=== PATIENT | female | born 1975 | race Hispanic/Latino ===

== ENCOUNTER 2017-08-17 18:14 | Inpatient (IN) | payer MEDICAID ==
[2017-08-17 18:26] VITALS: BMI 32.9
--- NOTE | 2017-08-17 19:35 | C.PDOC ---
History Of Present Illness Patient presents to the ER as a prescreen for detox from xanax. Patient reports she took 12 pills today, she usually takes 14-16 a day normally. Denies physical complaints at this time. Time Seen by Provider: 08/17/17 19:31 Chief Complaint (Nursing): Substance Abuse History Per: Patient History/Exam Limitations: no limitations Onset/Duration Of Symptoms: Days Current Symptoms Are (Timing): Still Present Suicide/Self Injury Attempted (Context): None Modifying Factor(s): Other (Xanax) Severity: None Pain Scale Rating Of: 0 Associated Symptoms: denies: Depression, Suicidal Thoughts, Suicidal Plan Involuntary Hold By: None Recent travel outside of the [place]: No Past Medical History Reviewed: Historical Data, Nursing Documentation, Vital Signs Vital Signs: Last Vital Signs Temp 98.4 F 08/17/17 18:30 Pulse 93 H 08/17/17 18:30 Resp 16 08/17/17 18:30 BP 124/89 08/17/17 18:30 Pulse Ox 97 08/17/17 19:56 - Medical History PMH: Anxiety Family History: States: No Known Family Hx - Social History Hx Alcohol Use: No Hx Substance Use: Yes - Immunization History Hx Tetanus Toxoid Vaccination: No Hx Influenza Vaccination: No Hx Pneumococcal Vaccination: No Review Of Systems Constitutional: Negative for: Fever, Chills Gastrointestinal: Negative for: Nausea, Vomiting, Diarrhea Physical Exam - Physical Exam Appears: Non-toxic Skin: Warm, Dry Head: Normacephalic Oral Mucosa: Moist Chest: Symmetrical, No Tenderness Cardiovascular: Rhythm Regular Respiratory: No Rales, No Rhonchi, No Wheezing Gastrointestinal/Abdominal: Soft, No Tenderness Neurological/Psych: Oriented x3 ED Course And Treatment - Laboratory Results Result Diagrams: 08/17/17 19:44 08/17/17 19:44 O2 Sat by Pulse Oximetry: 97 (Room air) Pulse Ox Interpretation: Normal Progress Note: Blood work and urinalysis ordered. Crisis notified. Disposition Discussed With : Isabel Montejo Comment: accepted the pt on his service and took over the care at 9:10 PM Doctor Will See Patient In The: Hospital Counseled Patient/Family Regarding: Studies Performed, Diagnosis - Disposition Disposition: HOSPITALIZED Disposition Time: 19:35 Condition: FAIR Forms: [facility] (Hungarian) - Clinical Impression Clinical Impression: Benzodiazepine dependence, continuous - Scribe Statement The provider has reviewed the documentation as recorded by the Scribe Cristóbal Mora All medical record entries made by the Scribe were at my direction and personally dictated by me. I have reviewed the chart and agree that the record accurately reflects my personal performance of the history, physical exam, medical decision making, and the department course for this patient. I have also personally directed, reviewed, and agree with the discharge instructions and disposition. Decision To Admit - Pt Status Changed To: Hospital Disposition Of: Inpatient - Admit Certification Admit to Inpatient:: After my assessment, the patient will require hospitalization for at least two midnights. This is because of the severity of symptoms shown, intensity of services needed, and/or the medical risk in this patient being treated as an outpatient. - InPatient: Physician Admission Certification: I certify that this patient requires 2 or more midnights of care for the following reason:: After my assessment, the patient will require hospitalization for at least two midnights. This is because of the severity of symptoms shown, intensity of services needed, and/or the medical risk in this patient being treated as an outpatient. - . Bed Request Type: Detox Admitting Physician: Isabel Montejo Patient Diagnosis: Benzodiazepine dependence, continuous
[2017-08-17 19:48] LABS: BASO # 0.1 K/uL (0.0-0.2); BASO % 0.7 % (0.0-2.0); EOS # 0.3 K/uL (0.0-0.7); EOS % 3.3 % (0.0-4.0); HEMOGLOBIN 12.9 g/dL (11.0-16.0); LYMPH # 3.4 K/uL (1.0-4.3); MEAN CELL VOLUME 97.1 fL (81.0-99.0); MEAN CORPUSCULAR HEMOGLOBIN 33.7 pg (27.0-31.0); MEAN CORPUSCULAR HGB CONC 34.7 g/dL (33.0-37.0); MONO # 0.5 K/uL (0.0-0.8); MONO % 5.2 % (0.0-10.0); NEUT # 5.5 K/uL (1.8-7.0); NEUT % 55.8 % (50.0-75.0); RBC 3.83 Mil/uL (3.80-5.20); RED CELL DISTRIBUTION WIDTH 15.2 % (11.5-14.5); WHITE BLOOD COUNT 9.8 K/uL (4.8-10.8)
[2017-08-17 20:00] LABS: ALB/GLOB RATIO 1.3 (1.0-2.1); ALBUMIN 4.6 g/dL (3.5-5.0); ALT/SGPT 36 U/L (9-52); AST/SGOT 33 U/L (14-36); BLOOD UREA NITROGEN 17 mg/dL (7-17); CALCIUM 9.6 mg/dl (8.6-10.4); GFR AFRICAN-AMERICAN > 60; GFR NON-AFRICAN AMERICAN 54
[2017-08-17 20:25] LABS: HCG,QUALITATIVE URINE NEGATIVE (NEGATIVE)
[2017-08-17 20:34] LABS: SQUAMOUS EPITHIAL 3 /hpf (0-5); URINE BACTERIA RARE (<OCC); URINE BILIRUBIN NEGATIVE (NEGATIVE); URINE BLOOD NEGATIVE (NEGATIVE); URINE CLARITY Clear (Clear); URINE COLOR Yellow (YELLOW); URINE GLUCOSE (UA) NORMAL (Normal); URINE LEUKOCYTE ESTERASE NEG Leu/uL (Negative); URINE NITRATE NEGATIVE (NEGATIVE); URINE PROTEIN NEGATIVE (NEGATIVE); URINE UROBILINOGEN NORMAL mg/dL (0.2-1.0)
[2017-08-17 20:49] LABS: BARBITURATES, UR NEGATIVE (NEGATIVE); OPIATES, UR NEGATIVE (NEGATIVE); PHENCYCLIDINE, UR NEGATIVE (NEGATIVE)
[2017-08-17 20:50] LABS: BENZODIAZEPINES, UR POSITIVE (NEGATIVE)
[2017-08-18] MEDS: Levothyroxine 100 MCG TAB PO SCH (07:52)
--- NOTE | 2017-08-18 08:08 | PCM.BM ---
<Anniak Forte - Last Filed: 08/18/17 08:05> Treatment Plan Problems - Problems identified on initial assessmt Potential for benzo withdrawal Date Initiated: 08/18/17 Assessment reference: NA Status: Active Treatment assets and liabiliti Patient Assests: adapts well, cooperative, ADL independent, negotiates basic needs Patient Liabilities: substance abuse - Milieu Protocol Maintain good personal hygiene: daily Encourage regular showers, daily Remind patient to perform daily oral care, daily Assist patient to perform ADL's Conduct patient checks and document Observation sheet: Q15 minutes Maintain personal safety: every shift Educate patient to report safety concerns to staff, every shift Monitor environment for contraband/sharps Medication safety: Monitor for expected outcome, potential side effects: every shift, Assess barriers to learning: every shift, Assess readiness for medication education: every shift <Isabel Montejo - Last Filed: 08/19/17 11:42> - Diagnosis (1) Benzodiazepine dependence, continuous Status: Acute Interventions: 08/19/17 11:42 * Assess 7x/week regarding severity of withdrawal * Educate regarding risks, benefits, side effects and alternatives of medications * Use Motivational Interviewing for abstinence * Use CBT for relapse prevention * Medication management for withdrawal symptoms * Encourage medication assisted treatment *
--- NOTE | 2017-08-18 14:03 | PCM.PSYCH ---
Initial Psychiatric Evaluation - Initial Psychiatric Evaluation Type of Admission: Voluntary Legal Status: Capacity Chief Complaint (in patient's own words): "I am here, I want to stop this" History of Present Illness and Precipitating Events: The pt is seen, chart reviewed and case discussed. She is a 40 yo WF, with 4 children, all young adults, lives with , son, daughter and daughter's son. No job. She is from [place] but currently stays in [place] with a relative. She later admitted that she is here b/c of "other people" meaning her boyfriend and family. However, then she also reports motivation to change" "this is killing me" She is using "at least 12 mg" of xanax increasingly close to 15 years. Never had seizures; "I didn't allow" she says, but had wdw sxs. This is her first detox, she tried as an outpatient but stopped bc she lost her insurance. Denies other drugs or alcohol. No rehab, no AA. Past psych hx: She claims she started with panic d/o to use xanax. No admissions and no suicides. Medical hx: Hypothyroidism. Uses synthroid on and off Family psych hx is unknown. Current Medications: Active Medications Generic Name Dose Route Start Last Admin Trade Name Freq PRN Reason Stop Dose Admin Chlordiazepoxide 25 mg 08/17/17 21:45 Librium PO Q4H PRN Alcohol Withdrawal Gabapentin 300 mg 08/18/17 10:00 08/18/17 13:55 Neurontin PO Not Given TID AFSHAN Hydroxyzine HCl 50 mg 08/17/17 21:49 08/18/17 06:43 Atarax PO 50 mg Q6H PRN Administration Anxiety Ibuprofen 600 mg 08/17/17 21:49 Motrin Tab PO Q6H PRN Pain, moderate (4-7) Levetiracetam 250 mg 08/18/17 10:30 08/18/17 11:01 Keppra PO 250 mg BID AFSHAN Administration Levothyroxine Sodium 100 mcg 08/18/17 06:30 08/18/17 07:52 Synthroid PO Not Given DAILY@0630 AFSHAN Trazodone HCl 50 mg 08/17/17 21:45 Desyrel PO HS PRN Insomnia Past Psychiatric History - Past Psychiatric History Previous Treatment History: None Pertinent Medical Hx (Current Medical&Sleep Prob, Allergies): Allergies Allergy/AdvReac Type Severity Reaction Status Date / Time No Known Allergies Allergy Verified 08/17/17 18:25 Alprazolam [Xanax] 2 mg PO DAILY 08/17/17 Levothyroxine [Synthroid] 0.1 mg PO DAILY 08/17/17 Review of Systems - Neurological Neurological: UNREMARKABLE - Psychiatric Psychiatric: Abnormal Sleep Pattern, Anhedonia, Anxiety, Change in Appetite, Confusion (mild), Difficulty Concentrating, Irritability. absent: Hallucinations, Homicidal Ideation, Suicidal Ideation Mental Status Examination - Personal Presentation Personal Presentation: Looks older than stated age - Affect Affect: Constricted - Motor Activity Motor Activity: Calm - Reliability in Providing Information Reliability in Providing Information: Fair - Speech Speech: Other (rambling and loud at times) - Mood Mood: Depressed, Anxious, Other (irate) - Formal Thought Process Formal Thought Process: No Impairment - Cognitive Functions Orientation: Person, Place, Situation, Time Sensorium: Drowsy Attention/Concentration: Easily distracted Abstract Thinking: [place] Estimate of Intelligence: Below average (borderline vs. 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 Attend groups and activities Supportive therapy and psychoeducation [place] for abstinence CBT for relapse prevention Encourage MAT Refer to rehab or IOP Attend self-help groups as well 34 min Projected ELOS: 6 days Prognosis: good with treatment Discharge Plan and Discharge Criteria: Rehab
[2017-08-19] MEDS: Levothyroxine 100 MCG TAB PO SCH (05:30)
[2017-08-19 17:11] VITALS: RESP 18
--- NOTE | 2017-08-19 20:17 | PCM.PYCHPN ---
Psychiatric Progress Note - Psychiatric Progress Note Patient seen today, length of contact: 15 minutes Patient Chief Complaint: I'm not feeling good because of headache. Problems Identified/Issues Discussed: patient seen, chart reviewed, case discussed with the staff. Issues related to illness and treatment were discussed with the patient and staff. Reported compliant with treatment with No adverse affects. Patient reported not feeling better because of headache. Aftercare discussed with the patient. At the time of evaluation, patient was awake alert and oriented 3, no delusions , no auditory or visual hallucinations, no suicidal ideations or homicidal ideations. Medical Problems: None reported Diagnostic Results: Reviewed DSM 5 Symptoms Update: Improving with treatment Medication Change: No Medical Record Reviewed: Yes Mental Status Examination - Cognitive Function Orientation: Person, Place, Situation, Time Memory: Intact Attention: WNL Concentration: WNL Association: WN Fund of Knowledge: [facility] Decription of patient's judgement and insights: Fair - Mood Mood: Depressed, Other (irate) - Affect Affect: Depressed - Speech Speech: Appropriate - Formal Thought Process Formal Thought Process: No Impairment Psychotic Thoughts and Behaviors: None - Suicidal Ideation Suicidal Ideation: No - Homicidal Ideation Homicidal Ideation: No Goal/Treatment Plan - Goal/Treatment Plan Need for Continued Stay: Remain at risks for inpatient hospitalization, Discharge may exacerbated symptoms, Severe functional impairment Progress Toward Problem(s) and Goals/Treatment Plan: Patient education. Supportive therapy. Motivational interview for abstinence. CPT for relapse prevention. Continue rest of the treatment as before. Estimated Date of D/C: 08/22/17 - Smoking Cessation Smoking Cessation Initiated: No
[2017-08-20] MEDS: Levothyroxine 100 MCG TAB PO SCH (05:54)
[2017-08-20] MEDS ORDERED: Magnesium Citrate Oral SOL (300 ml) PO ONE (15:19)
--- NOTE | 2017-08-20 16:43 | PCM.PYCHPN ---
Psychiatric Progress Note - Psychiatric Progress Note Patient seen today, length of contact: 15 minutes Patient Chief Complaint: I still have headache. Can I get Tylenol. Problems Identified/Issues Discussed: patient seen, chart reviewed, case discussed with the staff. Issues related to illness and treatment were discussed with the patient and staff. Reported compliant with treatment with No adverse affects. Patient reported not feeling better because of headache. Requesting for Tylenol. After evaluation patient became calm and more relaxed. Aftercare discussed with the patient. At the time of evaluation, patient was awake alert and oriented 3, no delusions , no auditory or visual hallucinations, no suicidal ideations or homicidal ideations. Medical Problems: None reported Diagnostic Results: Reviewed DSM 5 Symptoms Update: Improving with treatment Medication Change: No Medical Record Reviewed: Yes Mental Status Examination - Cognitive Function Orientation: Person, Place, Situation, Time Memory: Intact Attention: WNL Concentration: WNL Association: WN Fund of Knowledge: [facility] Decription of patient's judgement and insights: Fair - Mood Mood: Anxious - Affect Affect: Other (Appropriate) - Speech Speech: Appropriate - Formal Thought Process Formal Thought Process: No Impairment Psychotic Thoughts and Behaviors: None - Suicidal Ideation Suicidal Ideation: No - Homicidal Ideation Homicidal Ideation: No Goal/Treatment Plan - Goal/Treatment Plan Need for Continued Stay: Remain at risks for inpatient hospitalization, Discharge may exacerbated symptoms, Severe functional impairment Progress Toward Problem(s) and Goals/Treatment Plan: Patient education. Supportive therapy. Motivational interview for abstinence. CBT for relapse prevention. Continue treatment as before. Estimated Date of D/C: 08/22/17 - Smoking Cessation Smoking Cessation Initiated: No
[2017-08-21] MEDS: Levothyroxine 100 MCG TAB PO SCH (05:33)
[2017-08-22] MEDS: Levothyroxine 100 MCG TAB PO SCH (06:14)
[2017-08-22 06:31] VITALS: BP 111/79; PULSE 65; TEMP 98.1; O2SAT 97
--- NOTE | 2017-08-22 10:09 | PCM.PYCHDC ---
Mental Status Examination - Mental Status Examination Orientation: Person Discharge Summary - Discharge Note Consultations:: List each consultation separately and include: 1. Reason for request. 2. Findings. 3. Follow-up Summary of Hospital Course include:: 1. Description of specific treatment plan utilized for patients during their course of treatmen. 2. Summarize the time- course for resolution of acute symptoms and/or regressed behaviors. 3. Describe issues identified and worked on during hospitalization. 4. Describe medication utilized. 5. Describe medical problems identified and treated. 6. Reassessment of suicide risk Summary of Hospital Course: The pt is seen, chart reviewed and case discussed. She is a 40 yo WF, with 4 children, all young adults, lives with , son, daughter and daughter's son. No job. She is from [place] but currently stays in [place] with a relative. She later admitted that she is here b/c of "other people" meaning her boyfriend and family. However, then she also reports motivation to change" "this is killing me" She is using "at least 12 mg" of xanax increasingly close to 15 years. Never had seizures; "I didn't allow" she says, but had wdw sxs. This is her first detox, she tried as an outpatient but stopped bc she lost her insurance. Denies other drugs or alcohol. No rehab, no AA. Past psych hx: She claims she started with panic d/o to use xanax. No admissions and no suicides. Medical hx: Hypothyroidism. Uses synthroid on and off Family psych hx is unknown. - Diagnosis (1) Benzodiazepine dependence, continuous Current Visit: Yes Status: Acute - Final Diagnosis (DSM 5) Condition upon Discharge: FAIR Disposition: HOME/ ROUTINE Follow-up Treatment Plan: Librium detox + prn Librium As needed medications Gabapentin for augmentation Keppra to prevent seizures x30 days All risks, benefits and alternatives of medications, including no medications, discussed and the patient understood and agreed. Attend groups and activities Supportive therapy and psychoeducation [place] for abstinence CBT for relapse prevention Encourage MAT Refer to rehab or IOP Attend self-help groups as well 34 min Prescriptions/Medication Reconciliation: Gabapentin [Neurontin] 300 mg PO TID #90 cap levETIRAcetam [Keppra] 500 mg PO BID #60 tab Levothyroxine [Synthroid] 100 mcg PO DAILY@0630 #30 tab traZODone [Desyrel] 50 mg PO HS PRN #30 tab PRN Reason: Insomnia
--- NOTE | 2017-08-22 10:09 | PCM.PYCHPN ---
Psychiatric Progress Note - Psychiatric Progress Note Patient seen today, length of contact: 15 minutes Patient Chief Complaint: "I am here, I want to stop this" Medication Change: No Medical Record Reviewed: Yes Mental Status Examination - Cognitive Function Orientation: Person - Mood Mood: Anxious - Affect Affect: Other (Appropriate) - Speech Speech: Appropriate - Formal Thought Process Formal Thought Process: No Impairment - Suicidal Ideation Suicidal Ideation: No - Homicidal Ideation Homicidal Ideation: No Goal/Treatment Plan - Goal/Treatment Plan Need for Continued Stay: Remain at risks for inpatient hospitalization, Discharge may exacerbated symptoms, Severe functional impairment Progress Toward Problem(s) and Goals/Treatment Plan: Librium detox + prn Librium As needed medications Gabapentin for augmentation Keppra to prevent seizures x30 days All risks, benefits and alternatives of medications, including no medications, discussed and the patient understood and agreed. Attend groups and activities Supportive therapy and psychoeducation [place] for abstinence CBT for relapse prevention Encourage MAT Refer to rehab or IOP Attend self-help groups as well 34 min Estimated Date of D/C: 08/22/17
== END 2017-08-22 10:30 | disposition home or self-care (01) | DRG 895 ==
LOC: C.ER 18:14 → C.7D 21:15
PROVIDERS: ADMIT Psychiatry & Neurology Psychiatry; ATTEND Psychiatry & Neurology Psychiatry
PROC: HZ2ZZZZ Detoxification Services for Substance Abuse Treatment (ICD-10-PCS; principal; 2017-08-17)
PROC: HZ59ZZZ Individual Psychotherapy for Substance Abuse Treatment, Supportive (ICD-10-PCS; 2017-08-17)
PROC: HZ46ZZZ Group Counseling for Substance Abuse Treatment, Psychoeducation (ICD-10-PCS; 2017-08-17)
DX: F13.230 Sedative, hypnotic or anxiolytic dependence with withdrawal, uncomplicated (principal); E03.9 Hypothyroidism, unspecified; F60.9 Personality disorder, unspecified; F17.210 Nicotine dependence, cigarettes, uncomplicated

== ENCOUNTER 2018-03-27 20:05 | Inpatient (IN) | payer MEDICAID, OTHER ==
[2018-03-27 20:05] VITALS: BMI 32.9
[2018-03-27 20:58] VITALS: RESP 18; O2SAT 99
[2018-03-27 21:31] LABS: BASO # 0.1 K/uL (0.0-0.2); BASO % 0.5 % (0.0-2.0); EOS # 0.2 K/uL (0.0-0.7); EOS % 1.6 % (0.0-4.0); HEMOGLOBIN 12.2 g/dL (11.0-16.0); LYMPH # 2.5 K/uL (1.0-4.3); LYMPH % 24.5 % (20.0-40.0); MEAN CORPUSCULAR HEMOGLOBIN 32.5 pg (27.0-31.0); MEAN CORPUSCULAR HGB CONC 34.3 g/dL (33.0-37.0); MEAN PLATELET VOLUME 9.1 fL (7.2-11.7); MONO # 0.7 K/uL (0.0-0.8); MONO % 6.9 % (0.0-10.0); NEUT # 6.7 K/uL (1.8-7.0); NEUT % 66.5 % (50.0-75.0); RBC 3.76 Mil/uL (3.80-5.20); RED CELL DISTRIBUTION WIDTH 16.2 % (11.5-14.5)
[2018-03-27 21:33] LABS: MEAN CELL VOLUME 94.7 fL (81.0-99.0); SQUAMOUS EPITHIAL 3 /hpf (0-5); URINE BACTERIA MANY (<OCC); URINE BILIRUBIN NEGATIVE (NEGATIVE); URINE BLOOD 1+ (NEGATIVE); URINE CLARITY Clear (Clear); URINE COLOR Straw (YELLOW); URINE GLUCOSE (UA) NORMAL (Normal); URINE LEUKOCYTE ESTERASE NEG Leu/uL (Negative); URINE PROTEIN NEGATIVE (NEGATIVE); URINE UROBILINOGEN NORMAL mg/dL (0.2-1.0)
[2018-03-27 21:43] LABS: ALB/GLOB RATIO 1.5 (1.0-2.1); ALBUMIN 4.7 g/dL (3.5-5.0); ALT/SGPT 24 U/L (9-52); AST/SGOT 17 U/L (14-36); BLOOD UREA NITROGEN 10 mg/dL (7-17); CALCIUM 9.5 mg/dl (8.6-10.4); GFR NON-AFRICAN AMERICAN > 60
[2018-03-27 21:51] LABS: HCG,QUALITATIVE URINE NEGATIVE (NEGATIVE)
[2018-03-27 21:53] LABS: BARBITURATES, UR NEGATIVE (NEGATIVE); OPIATES, UR NEGATIVE (NEGATIVE); PHENCYCLIDINE, UR NEGATIVE (NEGATIVE)
[2018-03-27 21:54] LABS: BENZODIAZEPINES, UR POSITIVE (NEGATIVE)
--- NOTE | 2018-03-27 23:00 | PCM.BM ---
Treatment Plan Problems - Problems identified on initial assessmt potential for benzo withdrawal Date Initiated: 03/27/18 Time Initiated: 23:00 Status: Active Treatment assets and liabiliti Patient Assests: adapts well, cooperative, ADL independent, negotiates basic needs Patient Liabilities: substance abuse, medical problems - Milieu Protocol Maintain good personal hygiene: daily Encourage regular showers, daily Remind patient to perform daily oral care, daily Assist patient to perform ADL's Conduct patient checks and document Observation sheet: Q15 minutes Maintain personal safety: every shift Educate patient to report safety concerns to staff, every shift Monitor environment for contraband/sharps Medication safety: Monitor for expected outcome, potential side effects: every shift, Assess barriers to learning: every shift, Assess readiness for medication education: every shift
[2018-03-27 23:20] VITALS: BP 140/90; PULSE 91; TEMP 99
--- NOTE | 2018-03-28 00:08 | C.PDOC ---
History Of Present Illness 42 y/o female presents to the ED requesting detox from Xanax. Denies any other drug use. Patient offers no physical complaints at this time. Denies any suicidal or homicidal ideation. Time Seen by Provider: 03/27/18 21:04 Chief Complaint (Nursing): Substance Abuse History Per: Patient History/Exam Limitations: no limitations Onset/Duration Of Symptoms: Days Current Symptoms Are (Timing): Still Present Suicide/Self Injury Attempted (Context): None Past Medical History Reviewed: Historical Data, Nursing Documentation, Vital Signs Vital Signs: Last Vital Signs Temp 99 F 03/27/18 23:20 Pulse 91 H 03/27/18 23:20 Resp 18 03/27/18 23:20 BP 140/90 03/27/18 23:20 Pulse Ox 99 03/28/18 00:10 - Medical History PMH: Anxiety, Hypothyroidism, Seizures Denies: Diabetes, Hepatitis, HIV, HTN, Sexually Transmitted Disease - [facility] Procedures DETOXIFICATION SERVICES FOR SUBSTANCE ABUSE TREATMENT (08/17/17) GROUP PHYSICIAN OPHTHALMOLOGIST FOR SUBSTANCE ABUSE TREATMENT, PSYCHOEDUCATION (08/17/17) INDIV PSYCHOTHERAPY FOR SUBSTANCE ABUSE TREATMENT, SUPPORT (08/17/17) Family History: States: No Known Family Hx - Social History Hx Alcohol Use: No Hx Substance Use: Yes (Xanax) - Immunization History Hx Tetanus Toxoid Vaccination: No Hx Influenza Vaccination: No Hx Pneumococcal Vaccination: No Review Of Systems Except As Marked, All Systems Reviewed And Found Negative. Constitutional: Negative for: Fever Cardiovascular: Negative for: Chest Pain Respiratory: Negative for: Shortness of Breath Gastrointestinal: Negative for: Nausea, Vomiting Neurological: Negative for: Weakness, Numbness Psych: Negative for: Suicidal ideation Physical Exam - Physical Exam Appears: Well, Non-toxic, No Acute Distress Skin: Warm, Dry Head: Atraumatic, Normacephalic Eye(s): bilateral: Normal Inspection, PERRL, EOMI Neck: Normal ROM Chest: Symmetrical Cardiovascular: Rhythm Regular Respiratory: Normal Breath Sounds, No Accessory Muscle Use, Other (No respiratory distress) Extremity: Bilateral: Atraumatic, Normal Color And Temperature Neurological/Psych: Oriented x3, Normal Speech Gait: Steady ED Course And Treatment - Laboratory Results Result Diagrams: 03/27/18 21:24 03/27/18 21:24 O2 Sat by Pulse Oximetry: 99 (RA) Pulse Ox Interpretation: Normal Progress Note: Patient prescreened for detox. Labs ordered. jig worker will speak to patient and arrange detox placement. - Physician Consult Information Physician Contacted: Crisis Outcome Of Conversation: Patient accepted to detox unit under Dr. Win Disposition Discussed With .: Micah Win Doctor Will See Patient In The: Hospital Counseled Patient/Family Regarding: Diagnosis - Disposition Disposition: HOSPITALIZED Disposition Time: 22:51 Condition: GOOD - POA Present On Arrival: None - Clinical Impression Clinical Impression: Benzodiazepine dependence, continuous - PA / SENIOR FINANCIAL REPORTING ANALYST / Resident Statement MD/DO has reviewed & agrees with the documentation as recorded. - Scribe Statement The provider has reviewed the documentation as recorded by the Scribe (Tere Bonilla) All medical record entries made by the Scribe were at my direction and personally dictated by me. I have reviewed the chart and agree that the record accurately reflects my personal performance of the history, physical exam, medical decision making, and the department course for this patient. I have also personally directed, reviewed, and agree with the discharge instructions and disposition.
[2018-03-28] MEDS ORDERED: Levothyroxine 175 MCG TAB PO SCH (06:30)
== END 2018-03-28 02:00 | disposition left against medical advice (07) | DRG 746 ==
LOC: C.ER 20:05 → C.7D 22:51
DX: F19.10 Other psychoactive substance abuse, uncomplicated (principal); E03.9 Hypothyroidism, unspecified